=== PATIENT | female | born 1995 | race Caucasian/White ===

== ENCOUNTER → 2018-03-07 | Outpatient (CLI) | payer MEDICAID ==
--- NOTE | 2018-03-07 14:48 | Diagnostic Imaging Report ---
INDICATION: Evaluation for size and dates. TECHNIQUE: Multiple real-time grayscale images were obtained over the gravid uterus. COMPARISON: None FINDINGS: There is presence of a single viable intrauterine currently in cephalic presentation. Placenta is posterior and without previa. Normal amount of amniotic fluid appears to be present. Maternal adnexa not imaged. Biometrical measurements are as follows: Biparietal 3.61 cm, age 17 weeks weeks 1 days. Head circumference 13.4 cm, age 17 weeks 0 days. Abdominal circumference 11.8 cm, age 17 weeks 4 days. Femur length 2.3 cm, age 17 weeks 0 days. Sonographic estimate age: 17 weeks 2 days. Sonographic estimated date of delivery: 08/13/2018. Estimated Weight: 186 gm (+/- 27 gm). LMP percentile: 68%. heart rate: 150 beats per minute. number: 1 of 1. IMPRESSION: Single viable intrauterine currently in cephalic presentation. Current sonographic estimated age is 17 weeks 2 days for sonographic estimated date of delivery 08/13/2018. No abnormalities noted at this time. Dictated by: Dictated on workstation # [id number]
== END ==
LOC: RAD 13:55
PROVIDERS: ATTEND Family Medicine
DX: Z34.92 Encounter for supervision of normal pregnancy, unspecified, second trimester (principal); Z3A.17 17 weeks gestation of pregnancy
CPT/HCPCS: 76805

== ENCOUNTER → 2018-05-10 | Outpatient (CLI) | payer MEDICAID ==
--- NOTE | 2018-05-10 13:23 | Diagnostic Imaging Report ---
INDICATION: survey. TECHNIQUE: Multiple real-time grayscale images were obtained over the gravid uterus. COMPARISON: None. FINDINGS: Dorsey intrauterine gestation is in transverse position. Based upon the images submitted, there appears to be head to the maternal right assuming standard transducer orientation. The placenta is posterior. There was no abruption or previa. Amniotic fluid volume was normal. While no pathological finding at the anatomical survey is revealed, there are limited acoustical windows to evaluate the spine as well as the cord insertion. Biometrical measurements correlate with an average age 27 weeks 4 days. IMPRESSION: 27 weeks 4 days dorsey viable IUP in transverse position. While no pathological finding was revealed, anatomical survey was limited at the levels of the spine and umbilical cord insertion. Biometrical measurements are as follows: Biparietal 6.58 cm, age 26 weeks 4 days. Head circumference 24.31 cm, age 26 weeks 3 days. Abdominal circumference 23.72 cm, age 28 weeks 1 days. Femur length 5.45 cm, age 28 weeks 6 days. Sonographic estimate age: 27 weeks 4 days. Sonographic estimated date of delivery: 08/05/18. Estimated Weight: 1163 gm (+/- 170 gm). LMP percentile: 94%. heart rate: 146 beats per minute. number: 1 of 1. Dictated by: Dictated on workstation # [id number]
== END ==
LOC: RAD 10:14
PROVIDERS: ATTEND Family Medicine
DX: Z36.89 Encounter for other specified antenatal screening (principal); Z3A.27 27 weeks gestation of pregnancy
CPT/HCPCS: 76805

== ENCOUNTER 2018-07-11 15:23 | Outpatient (CLI) | payer MEDICAID ==
[2018-07-11 16:31] VITALS: BP 118/68
== END 2018-07-11 16:33 | disposition home or self-care (01) ==
LOC: WSo 15:23 → LDRP 15:23 → WSo 16:33
PROVIDERS: ATTEND Family Medicine
DX: O24.419 Gestational diabetes mellitus in pregnancy, unspecified control (principal); O16.9 Unspecified maternal hypertension, unspecified trimester; Z3A.00 Weeks of gestation of pregnancy not specified
CPT/HCPCS: 59025

== ENCOUNTER 2018-07-18 15:31 | Outpatient (RCR) | payer MEDICAID ==
--- NOTE | 2018-07-18 15:35 | NUR ---
ADDISON DALE presented to unit via AMBULATORY from HOME, accompanied by MOTHER FOR NST. EFHM and TOCO applied, VS taken.
[2018-07-18 15:46] VITALS: BP 125/74
--- NOTE | 2018-07-18 16:13 | NUR ---
REFER TO LABOR FLOW SHEET.
--- NOTE | 2018-07-18 16:18 | NUR ---
PT DISMISSED FROM [facility] TO PERSONAL AUTO VIA AMBULATORY IN STABLE CONDITION ACC BY MOTHER.
--- NOTE | 2018-07-25 10:11 | NUR ---
pt ambulated to OB for weekly NST. EFM and TOCO applied. pt reports +FM. denies vaginal bleeding or leaking fluid. call light within reach.
[2018-07-25 10:53] VITALS: BP 124/66
--- NOTE | 2018-07-25 10:53 | NUR ---
was called r/t reactive NST. dismissal orders received. Addendum: 07/25/18 at 1103 by SHAHEED SOLER RN monitors dc'd. pt ambulated to private vehicle without staff assist. pt denies c/o's @ time.
[2018-08-11] MEDS ORDERED: DOCU100C37 PO (09:36)
[2018-08-11] MEDS ORDERED: PNV1TABL67 PO (09:36)
[2018-08-11] MEDS ORDERED: IBUP-844 PO (09:36)
[2018-08-11] MEDS ORDERED: FERR325T18 PO (09:36)
== END 2018-10-16 | disposition home or self-care (01) ==
LOC: WSo 15:31
PROVIDERS: ATTEND Family Medicine
DX: O24.419 Gestational diabetes mellitus in pregnancy, unspecified control (principal)
CPT/HCPCS: 59025

== ENCOUNTER 2018-07-31 12:44 | Outpatient (CLI) | payer MEDICAID ==
[2018-07-31 14:45] VITALS: BP 130/75
--- NOTE | 2018-08-01 13:57 | Physician Query-Final Dx ---
JETT MARIO 08/01/18 1357: Clinic Account Progress/Dx Physician Query: Please give a diagnosis and include the weeks of gestation if known thank you Date of Service Jul 31, 2018 at 12:44 ELADIO BENSON MD 08/02/18 0705: Clinic Account Progress/Dx DIAGNOSIS: Diagnosis 1. IUP in third trimester non labor 2. Gestational diabetes 3. Isolated high blood pressure JETT MARIO Aug 01, 2018 13:57 ELADIO BENSON MD Aug 02, 2018 07:05
== END 2018-07-31 15:13 | disposition home or self-care (01) ==
LOC: WSo 12:44 → LDRP 12:45 → WSo 15:13
PROVIDERS: ATTEND Family Medicine
DX: O24.419 Gestational diabetes mellitus in pregnancy, unspecified control (principal); O99.89 Other specified diseases and conditions complicating pregnancy, childbirth and the puerperium; R03.0 Elevated blood-pressure reading, without diagnosis of hypertension
CPT/HCPCS: 82570; 84156; 99213

== ENCOUNTER 2018-08-08 18:49 | Inpatient (IN) | payer MEDICAID | END 2018-08-11 13:36 | disposition home or self-care (01) | LOC: LDRP 18:49 → WS 08-09 21:15 ==